=== PATIENT | female | born 1985 | race Caucasian/White ===

== ENCOUNTER 2017-06-15 09:25 | Emergency (ER) | payer SELFPAY ==
[2017-06-15 09:39] VITALS: BP 134/92; BMI 24.2
[2017-06-15] MEDS ORDERED: NS 1000 ML 1,000 ML IV ONE (10:19)
[2017-06-15] MEDS ORDERED: TORADOL 30 MG VIAL IVP ONE (10:23)
--- NOTE | 2017-06-15 10:23 | DR.GENAD ---
HPI - PCP Primary Care Physician: Bria - Complaint/Symptoms Chief Complaint Doctors Comments: Patient was playing football with family members last Tuesday; took a knee in the left side area. The following day had dyspnea, Dr Mercer did x-ray; he reported that she had two rib fractures..Today he call stating that patient might have a spleenic pain/ rupture. Recommended CT abdomen. Chief Complaint:: pt is c/o left sided rib pain. Pt had xrays done at Dr. Hernandez office and it showed fractures. - Source History Provided: Patient - Mode of Arrival Mode of Arrival: Ambulatory - Timing Onset of Chief Complaint: 06/12/17 PMH - PMH Past Medical History: No Past Surgical History: Yes Surgical History: Other Past Surgical History Comment: ruptured spleen - Family History History of Family Medical Conditions: Yes Family Medical History: Hypertension - Social History Does patient currently use any type of tobacco product: Yes Have you used tobacco products in the last 12 months: Yes Type of Tobacco Use: Cigarettes Does any household member use tobacco: No Alcohol Use: Occasionally Do you use any recreational Drugs:: No Lives With: Alone Lives Where: Home - infectious screening In the last 2 months have you had wt loss of >10#?: NO Have you had fever, night sweats or hemotysis?: No Have you traveled outside the country in the last 6 months?: No Isolation: Standard ROS - Review of Systems Eyes: No Symptoms Reported ENTM: No Symptoms Reported Respiratoy: No Symptoms Reported Cardiovascular: No Symptoms Reported Gastrointestinal/Abdominal: Abdominal Pain (LUQ) Neurological: No Symptoms Reported Musculoskeletal: No Symptoms Reported Integumentary: No Symptoms Reported Hematologic/Lymphatic: No Symptoms Reported Endocrine: No Symptoms Reported Psychiatric: No Symptoms Reported All Other Systems: Reviewed and Negative PE - Vital Signs Vitals: Temperature 98.7 F Pulse Rate 100 Respiratory Rate 15 Blood Pressure 134/92 O2 Sat by Pulse Oximetry 97 - General General Appearance: Alert, In No Apparent Distress - Head Head Exam: Normal Inspection, Atraumatic - Eyes Eye exam: Normal Appearance, PERRL, EOMI - ENT ENT Exam: Normal Exam External Ear Exam: Normal External Inspection TM/Canal Exam: Bilateral Normal Nose Exam: Normal Nose Exam Mouth Exam: Normal Inspection Throat Exam: Normal Inspection - Neck Neck Exam: Normal Inspection, Full ROM - Chest Chest Inspection: Normal Inspection, Symmetric Chest Wall Rise - Respiratory Respiratory Exam: Normal Lung Sounds Bilat Respiratory Exam: Bilateral Clear to Auscultation - Cardiovascular Cardiovascular Exam: Regular Rate, Normal Rhythm - Abdominal Exam Abdominal Exam: Normal Inspection, Normal Bowel Sounds Abdominal Tenderness: LUQ - Extremities Extremities Exam: Normal Inspection, Full ROM - Back Back Exam: Normal Inspection, Full ROM - Neurologic Neurological Exam: Alert, Oriented X3, CN II-XII Intact - Psychiatric Psychiatric Exam: Normal Affect - Skin Skin Exam: Warm, Dry, Intact ROR - Labs Reviewed Result Diagrams: 06/15/17 10:27 06/15/17 10:27 Laboratory: WBC 6.8 X10^3/uL (3.6-10.0) 06/15/17 10:27 RBC 4.52 X10^6/uL (3.5-5.4) 06/15/17 10:27 Hgb 15.3 g/dL (12.0-16.0) 06/15/17 10:27 Hct 44.4 % (36.0-47.0) 06/15/17 10:27 MCV 98.2 fL (80.0-100.0) 06/15/17 10:27 MCH 33.9 pg (27.0-34.0) 06/15/17 10:27 MCHC 34.5 g/dL (33.0-35.0) 06/15/17 10:27 RDW 13.9 % (11.6-16.5) 06/15/17 10:27 Plt Count 427 X10^3/uL (150.0-450.0) 06/15/17 10:27 MPV 6.7 fL (7.4-11.0) L 06/15/17 10:27 Neut % 68.5 % (42.0-75.0) 06/15/17 10:27 Lymph % 19.8 % (21.0-51.0) L 06/15/17 10:27 [place] % 10.1 % (0.0-13.0) 06/15/17 10:27 Eos % 1.0 % (0.9-2.9) 06/15/17 10:27 Baso % 0.6 % (0.2-1.0) 06/15/17 10:27 Neut # 4.7 x10^3/uL (2.2-4.8) 06/15/17 10:27 Lymph # 1.4 X10^3/uL (1.3-2.9) 06/15/17 10:27 [place] # 0.7 x10^3/uL (0.3-0.8) 06/15/17 10:27 Eos # 0.1 x10^3/uL (0.0-0.2) 06/15/17 10:27 Baso # 0.0 X10^3/uL (0.0-0.1) 06/15/17 10:27 Absolute Nucleated RBC 0.1 /100WBC 06/15/17 10:27 INR Target Range - 06/15/17 10:27 INR 0.91 (0.8-1.3) 06/15/17 10:27 Sodium 139 mmol/L (136-145) 06/15/17 10:27 Corrected Sodium TNP 06/15/17 10:27 Potassium 4.4 mmol/L (3.5-5.1) 06/15/17 10:27 Chloride 105 mmol/L (98-107) 06/15/17 10:27 Carbon Dioxide 27.5 mmol/L (21-32) 06/15/17 10:27 BUN 10 mg/dL (7-18) 06/15/17 10:27 Creatinine 0.69 mg/dL (0.55-1.02) 06/15/17 10:27 Est GFR (MDRD) Af Amer > 60 (>60) 06/15/17 10:27 Est GFR (MDRD) Non-Af > 60 (>60) 06/15/17 10:27 Glucose 92 mg/dL (65-99) 06/15/17 10:27 Calcium 8.5 mg/dL (8.5-10.1) 06/15/17 10:27 Corrected Calcium TNP 06/15/17 10:27 Total Bilirubin 0.40 mg/dL (0.2-1.0) 06/15/17 10:27 AST 15 Units/L (15-37) 06/15/17 10:27 ALT 20 Units/L (12-78) 06/15/17 10:27 Alkaline Phosphatase 76 Units/L (46-116) 06/15/17 10:27 C-Reactive Protein 2.40 mg/L (0-3.0) 06/15/17 10:27 Total Protein 7.1 g/dL (6.4-8.2) 06/15/17 10:27 Albumin 3.7 g/dL (3.4-5.0) 06/15/17 10:27 Globulin 3.4 g/dL (2.5-4.5) 06/15/17 10:27 Albumin/Globulin Ratio 1.1 Ratio (1.1-2.1) 06/15/17 10:27 Amylase 50 Units/L (25-115) 06/15/17 10:27 Lipase 110 Units/L (73-393) 06/15/17 10:27 - XRAY XRAY Interpreted by: Radiologist (Rib series:There is no definite rib fracture, contour deformity or osteolytic process. The submitted oblique view of the left ribs does not include the upper segments. There is minimal discoid atelectasis in the left lower lung. N pneumothorax is seen. Impression: No acute left rib injury identified. CT Abd/Pelv:The visualized portsions of the lung bases are clear. The liver, spleen,pancreas,kidneys and adrenal glands are unremarkable. The gallbladder is normal. No free intraperitoneal air. No evidence of intestinal obstruction or inflammation. The appendix is normal. No free fluid identified. There is a nondisplaced fracture of the left lateral 9th rib. The vascular structures are within normal limits for age. No pathologicaolly enlarged lymph nodse are identified. Normal urinary bladder trace. Impression : Nondisplaced left lateral 9th rib fracture. Otherwise negative exam.) - Diagnosis Discharge Problem: Nondisplaced left lateral 9th rib fractu - Discharge Plan Condition: Stable - Follow ups/Referrals Follow ups/Referrals: SUNIL HOWE [Primary Care Provider] - 3 days - Instructions
[2017-06-15] MEDS ORDERED: TORADOL 30 MG VIAL ONE (10:24)
[2017-06-15] MEDS ORDERED: NS 1000 ML 1,000 ML ONE (10:24)
[2017-06-15 10:50] LABS: BASOPHILS % (AUTO) 0.6 % (0.2-1.0); EOSINOPHILS # (AUTO) 0.1 x10^3/uL (0.0-0.2); HEMATOCRIT 44.4 % (36.0-47.0); HEMOGLOBIN 15.3 g/dL (12.0-16.0); LYMPHOCYTES # (AUTO) 1.4 X10^3/uL (1.3-2.9); LYMPHOCYTES % (AUTO) 19.8 % (21.0-51.0); MEAN CORPUSCULAR HEMOGLOBIN 33.9 pg (27.0-34.0); MEAN CORPUSCULAR HGB CONC 34.5 g/dL (33.0-35.0); MEAN CORPUSCULAR VOLUME 98.2 fL (80.0-100.0); MEAN PLATELET VOLUME 6.7 fL (7.4-11.0); MONOCYTES # (AUTO) 0.7 x10^3/uL (0.3-0.8); MONOCYTES % (AUTO) 10.1 % (0.0-13.0); NEUTROPHILS # (AUTO) 4.7 x10^3/uL (2.2-4.8); NEUTROPHILS % (AUTO) 68.5 % (42.0-75.0); PLATELET COUNT 427 X10^3/uL (150.0-450.0); RED BLOOD COUNT 4.52 X10^6/uL (3.5-5.4); RED CELL DISTRIBUTION WIDTH 13.9 % (11.6-16.5); WHITE BLOOD COUNT 6.8 X10^3/uL (3.6-10.0)
[2017-06-15 10:55] LABS: ALANINE AMINOTRANSFERASE 20 Units/L (12-78); ALBUMIN 3.7 g/dL (3.4-5.0); ALKALINE PHOSPHATASE 76 Units/L (46-116); AMYLASE 50 Units/L (25-115); ASPARTATE AMINO TRANSFERASE 15 Units/L (15-37); BLOOD UREA NITROGEN 10 mg/dL (7-18); CALCIUM 8.5 mg/dL (8.5-10.1); CARBON DIOXIDE 27.5 mmol/L (21-32); CHLORIDE 105 mmol/L (98-107); CREATININE 0.69 mg/dL (0.55-1.02); LIPASE 110 Units/L (73-393); SODIUM 139 mmol/L (136-145); TOTAL PROTEIN 7.1 g/dL (6.4-8.2); eGFR BLACK RACES > 60 (>60); eGFR NON BLACK RACES > 60 (>60)
[2017-06-15] MEDS ORDERED: DEMEROL INJ IVP ONE (11:06)
[2017-06-15] MEDS ORDERED: PHENERGAN INJ 25 MG IV ONE (11:07)
[2017-06-15] MEDS ORDERED: PHENERGAN INJ 25 MG ONE (11:09)
[2017-06-15] MEDS ORDERED: DEMEROL INJ ONE (11:10)
--- NOTE | 2017-06-15 11:18 | RAD ---
Examination: Right ribs, four views History: Trauma Findings: There is no definite rib fracture, contour deformity or osteolytic process. The submitted o blique view of the left ribs does not include the upper segments. There is minimal discoid atelectasi s in the left lower lung. No pneumothorax is seen. Impression: No acute left rib injury identified. Reported By:
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
== END 2017-06-15 12:39 | disposition home or self-care (01) ==
LOC: ER 09:47
DX: S22.32XA Fracture of one rib, left side, initial encounter for closed fracture (principal); Y93.61 Activity, american tackle football; Y92.89 Other specified places as the place of occurrence of the external cause
CPT/HCPCS: 36415; 71111; 74177; 80053; 82150; 83690; 85025; 85610; 86140; 96365; 96374; 96375; 99282; 99283; A4222; J1885; J2175; J2550

== ENCOUNTER 2017-11-13 17:04 | Emergency (ER) | payer SELFPAY ==
[2017-11-13 17:12] VITALS: BP 127/76; BMI 25.0
[2017-11-13] MEDS ORDERED: NS 1000 ML 1,000 ML ONE (17:18)
[2017-11-13] MEDS ORDERED: ZOFRAN INJ 4 MG VIAL IVP ONE (17:29)
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
[2017-11-13 17:34] LABS: BILIRUBIN,URINE NEGATIVE (NEGATIVE); BLOOD/HEMOGLOBIN,URINE NEGATIVE (NEGATIVE); GLUCOSE, URINE NEGATIVE (NEGATIVE); KETONES,URINE 4+ (NEGATIVE); LEUKOCYTE ESTERASE ,URINE 1+ (NEGATIVE); NITRITES,URINE NEGATIVE (NEGATIVE); PROTEIN,URINE 1+ (NEGATIVE); UROBILINOGEN,URINE NORMAL (NORMAL)
[2017-11-13 17:36] LABS: COLOR,URINE YELLOW (YELLOW)
[2017-11-13 17:37] LABS: APPEARANCE,URINE CLEAR (CLEAR)
[2017-11-13] MEDS ORDERED: ZOFRAN INJ 4 MG VIAL ONE (17:37)
[2017-11-13 17:39] LABS: BASOPHILS % (AUTO) 0.1 % (0.2-1.0); EOSINOPHILS % (AUTO) 0.2 % (0.9-2.9); HEMATOCRIT 44.1 % (36.0-47.0); HEMOGLOBIN 15.7 g/dL (12.0-16.0); LYMPHOCYTES # (AUTO) 0.2 X10^3/uL (1.3-2.9); LYMPHOCYTES % (AUTO) 1.6 % (21.0-51.0); MEAN CORPUSCULAR HGB CONC 35.5 g/dL (33.0-35.0); MEAN CORPUSCULAR VOLUME 98.5 fL (80.0-100.0); MEAN PLATELET VOLUME 6.4 fL (7.4-11.0); MONOCYTES # (AUTO) 0.6 x10^3/uL (0.3-0.8); NEUTROPHILS # (AUTO) 11.2 x10^3/uL (2.2-4.8); NEUTROPHILS % (AUTO) 93.1 % (42.0-75.0); PLATELET COUNT 371 X10^3/uL (150.0-450.0); RED BLOOD COUNT 4.48 X10^6/uL (3.5-5.4); RED CELL DISTRIBUTION WIDTH 13.1 % (11.6-16.5)
[2017-11-13] MEDS ORDERED: PEPCID 20 MG IV PREMIX* 20 MG/50 ML BAG IV ONE (17:39)
[2017-11-13] MEDS ORDERED: TORADOL 30 MG VIAL IVP ONE (17:39)
[2017-11-13 17:42] LABS: BACTERIA,URINE NEGATIVE /HPF (NEGATIVE); RBC,URINE NONE SEEN /HPF (NONE SEEN); SQUAMOUS EPITHELIAL CELL,UR RARE /HPF (NEGATIVE); TRICHOMONAS,URINE RARE /HPF (NEGATIVE)
[2017-11-13 17:49] LABS: ALANINE AMINOTRANSFERASE 23 Units/L (12-78); ALBUMIN 3.8 g/dL (3.4-5.0); ALKALINE PHOSPHATASE 75 Units/L (46-116); AMYLASE 44 Units/L (25-115); ASPARTATE AMINO TRANSFERASE 15 Units/L (15-37); BLOOD UREA NITROGEN 14 mg/dL (7-18); CALCIUM 8.1 mg/dL (8.5-10.1); CARBON DIOXIDE 25.2 mmol/L (21-32); CHLORIDE 100 mmol/L (98-107); CREATININE 0.69 mg/dL (0.55-1.02); LIPASE 85 Units/L (73-393); SODIUM 136 mmol/L (136-145); TOTAL PROTEIN 7.2 g/dL (6.4-8.2); eGFR BLACK RACES > 60 (>60); eGFR NON BLACK RACES > 60 (>60)
[2017-11-13] MEDS ORDERED: TORADOL 60 MG VIAL ONE (17:53)
[2017-11-13] MEDS ORDERED: PEPCID TAB 20 MG ONE (17:54)
[2017-11-13 17:58] LABS: SERUM PREGNANCY TEST, QUAL NEGATIVE <10 mIU/mL
[2017-11-13] MEDS ORDERED: NS 1000 ML 1,000 ML IV SCH (18:00)
[2017-11-13 18:08] LABS: BAND NEUTROPHILS % 3 % (0-10); PLATELET MORPHOLOGY COMMENT NORMAL (NORMAL)
[2017-11-13] MEDS ORDERED: DEMEROL INJ IVP ONE (18:15)
[2017-11-13] MEDS ORDERED: DEMEROL INJ ONE (18:17)
--- NOTE | 2017-11-13 20:02 | CT ---
CT OF THE ABDOMEN AND PELVIS WITHOUT CONTRAST HISTORY: Right lower quadrant pain Comparison: 06/15/2017 Technique: Multiple axial images of the abdomen and pelvis were obtained from the lung bases to the pubic symphy sis without the administration of IV contrast. Oral contrast was administered. Dose reduction techni ques including Automated Exposure Control (AEC) and adjustment of mA and kV were utlized. Findings: The heart is normal in size. There is no pericardial effusion. Lung bases are clear without focal con solidation, pleural effusion or pneumothorax. The sensitivity for focal lesion detection within the solid abdominal viscera is diminished without t he use of IV contrast. Liver and spleen are normal in size, and contour. No focal lesions. No ductal dilitation. Gallbladder is present. No calcified gallstones or gallbladder wall thickening. The pancreas is unremarkable. Ad renal glands are normal. Nonobstructing left renal stone measuring 6 mm. No hydronephrosis. Mild int rinsic hyperattenuation of the renal pyramids. No bowel obstruction or inflammation. Normal appendix. No abnormal appearing mesenteric or retroperit padilla lymph nodes. No free fluid or fluid collections. The bladder is normal in appearance. Uterus and ovaries appear to be present. No free fluid or abnorm al pelvic lymph nodes. No aggressive osseous lesions. IMPRESSION: 1. No source of patient's right lower quadrant pain is identified. Specifically the appendix is norm al. 2. Nonobstructing left renal stone. 3. Mild intrinsic hyperattenuation of the renal pyramids. This can be a normal finding in many patien ts in may be secondary to dehydration. Reported By:
== END 2017-11-13 20:46 | disposition home or self-care (01) ==
LOC: ER 17:16
DX: R10.31 Right lower quadrant pain (principal)
CPT/HCPCS: 36415; 74176; 80053; 81001; 82150; 83690; 84703; 85025; 96365; 96367; 96374; 96375; 99283; A4222; J1885; J2175; J2405